=== PATIENT | female | born 1975 | race Caucasian/White ===

== ENCOUNTER 2018-12-07 10:39 | Emergency (ER) | payer OTHER ==
[2018-12-07] MEDS ORDERED: HYDROcodone/APAP 5-325MG 1 EACH TAB PO STA (11:05)
--- NOTE | 2018-12-07 11:25 | ED ---
General Adult HPI - General Chief complaint: Fall Stated complaint: FALL, SIM, HEAD INJURY, LEFT SHOULDER/ARM Time Seen by Provider: 12/07/18 10:49 Source: patient, RN notes reviewed Mode of arrival: ambulatory Limitations: no limitations - History of Present Illness Initial comments: 43-year-old female presents to the emergency department for a chief complaint of fall occurring about one hour prior to arrival. Patient states she was walking down her steps outside when she slipped and fell on her back. Patient states she did hit her head and may have had a momentary loss of consciousness. Patient admits to midline neck pain as well as left-sided neck pain and left shoulder pain. She has left upper back pain as well. She states this hurts worse when she takes a deep breath. Patient denies any abdominal pain. She denies any other injuries. Patient denies possibility of and has had a tubal ligation. Patient denies taking blood thinners. Patient has no other complaints at this time including shortness of breath, chest pain, abdominal pain, nausea or vomiting, headache, or visual changes. - Related Data Home Medications Medication Instructions Recorded Confirmed Ibuprofen [Motrin Ib] 600 mg PO Q8HR 12/07/18 12/07/18 Topiramate [Topamax] 50 mg PO BID 12/07/18 12/07/18 Allergies Allergy/AdvReac Type Severity Reaction Status Date / Time sumatriptan [From Imitrex] Allergy Anaphylaxis Verified 12/07/18 11:07 zolmitriptan [From Zomig] Allergy Anaphylaxis Verified 12/07/18 11:07 Review of Systems ROS Statement: Those systems with pertinent positive or pertinent negative responses have been documented in the HPI. ROS Other: All systems not noted in ROS Statement are negative. Past Medical History Past Medical History: Fibromyalgia Additional Past Medical History / Comment(s): migraines, scoliosis, DGD History of Any Multi-Drug Resistant Organisms: None Reported Past Surgical History: Appendectomy, Tubal Ligation Past Psychological History: No Psychological Hx Reported Smoking Status: Former smoker Past Alcohol Use History: None Reported Past Drug Use History: None Reported General Exam Limitations: no limitations General appearance: alert, in no apparent distress Head exam: Present: atraumatic, normocephalic, normal inspection Eye exam: Present: normal appearance, PERRL, EOMI. Absent: scleral icterus, conjunctival injection, periorbital swelling ENT exam: Present: normal exam, mucous membranes moist Neck exam: Present: tenderness (c-spine tenderness and left sided neck tenderness), other (patient in c-collar). Absent: meningismus, lymphadenopathy Respiratory exam: Present: normal lung sounds bilaterally. Absent: respiratory distress, wheezes, rales, rhonchi, stridor Cardiovascular Exam: Present: regular rate, normal rhythm, normal heart sounds. Absent: systolic murmur, diastolic murmur, rubs, gallop, clicks GI/Abdominal exam: Present: soft, normal bowel sounds. Absent: distended, tenderness, guarding, rebound, rigid Extremities exam: Present: tenderness (tenderness noted in the posterior left shoulder), normal capillary refill (cap refill < 2 seconds, radial pulse 2+ in RUE). Absent: full ROM (90 flexion and abduction of L shoulder) Back exam: Present: tenderness (tenderness noted to left lateral upper thoracic back. no midback or lower back tenderness). Absent: CVA tenderness (R), CVA tenderness (L), vertebral tenderness (no thoracic or lumbar spine tenderness. ) , other (no bruising noted) Neurological exam: Present: alert, oriented X3, CN II-XII intact Psychiatric exam: Present: normal affect, normal mood Course Vital Signs 12/07/18 12/07/18 12/07/18 10:42 13:16 16:37 Temperature 97.9 F 98.1 F 97.8 F Pulse Rate 77 63 63 Respiratory 18 15 16 Rate Blood Pressure 145/79 116/73 127/68 O2 Sat by Pulse 100 97 100 Oximetry - Reevaluation(s) Reevaluation #1: 12/07/18 sling applied by Tiki GUTIERREZ 12/07/18 17:03 Medical Decision Making - Medical Decision Making 43-year-old female presents to the emergency department for a chief about one hour prior to arrival. Patient states she was walking down steps when she slipped and fell on her back. She states it was icy. Patient complains of left sided neck pain and left shoulder pain as well as left thoracic lateral back pain. Patient was given Jeanerette for this pain. Chest x-ray with rib study shows no acute abnormality. Left shoulder x-ray shows a possible acromioclavicular joint separation without fracture or dislocation. Patient given sling and follow-up to orthopedics. Upon reevaluation patient's pain has worsened and she now has some abdominal tenderness just below the left side of the ribs. Therefore lab work and CT were ordered. Labs are unremarkable. CT chest abdomen pelvis with contrast showed an acute nondisplaced fracture of the anterior lateral margin of rib to on the left. There is also a 1 cm left renal lesion that needs further evaluation which patient was educated about will follow up with primary care for this there is also possible residual thymic tissue in the superior mediastinum that needs to be reevaluated. Patient also aware of this. Focal asymmetry of the right breast is noted which patient is aware of and will follow up for as well. There is no evidence of solid or hollow viscera traumatic injury in abdomen or pelvis. Patient given Tylenol 3 for the pain. Pain is somewhat better at this time. Patient will follow up with primary care and returning here if she has any worsening symptoms. - Lab Data Result diagrams: 12/07/18 14:31 12/07/18 14:31 Lab Results 12/07/18 12/07/18 12/07/18 Range/Units 11:20 11:20 14:31 WBC (3.8-10.6) k/uL RBC (3.80-5.40) m/uL Hgb (11.4-16.0) gm/dL Hct (34.0-46.0) % MCV (80.0-100.0) fL MCH (25.0-35.0) pg MCHC (31.0-37.0) g/dL RDW (11.5-15.5) % Plt Count (150-450) k/uL Neutrophils % % Lymphocytes % % Monocytes % % Eosinophils % % Basophils % % Neutrophils # (1.3-7.7) k/uL Lymphocytes # (1.0-4.8) k/uL Monocytes # (0-1.0) k/uL Eosinophils # (0-0.7) k/uL Basophils # (0-0.2) k/uL PT (9.0-12.0) sec INR (<1.2) APTT (22.0-30.0) sec Sodium (137-145) mmol/L Potassium (3.5-5.1) mmol/L Chloride (98-107) mmol/L Carbon Dioxide (22-30) mmol/L Anion Gap mmol/L BUN (7-17) mg/dL Creatinine (0.52-1.04) mg/dL Est GFR (CKD-EPI)AfAm (>60 ml/min/1.73 sqM) Est GFR (CKD-EPI)NonAf (>60 ml/min/1.73 sqM) Glucose (74-99) mg/dL Calcium (8.4-10.2) mg/dL Total Bilirubin (0.2-1.3) mg/dL AST (14-36) U/L ALT (9-52) U/L Alkaline Phosphatase (38-126) U/L Total Creatine Kinase 106 (30-135) U/L CK-MB (CK-2) 1.5 (0.0-2.4) ng/mL CK-MB (CK-2) Rel Index 1.4 Troponin I <0.012 (0.000-0.034) ng/mL Total Protein (6.3-8.2) g/dL Albumin (3.5-5.0) g/dL Urine Color Yellow Urine Appearance Cloudy H (Clear) Urine pH 6.5 (5.0-8.0) Ur Specific Mitchell 1.014 (1.001-1.035) Urine Protein Negative (Negative) Urine Glucose (UA) Negative (Negative) Urine Ketones Negative (Negative) Urine Blood Negative (Negative) Urine Nitrite Negative (Negative) Urine Bilirubin Negative (Negative) Urine Urobilinogen <2.0 (<2.0) mg/dL Ur Leukocyte Esterase Negative (Negative) Urine WBC 3 (0-5) /hpf Ur Squamous Epith Cells 9 H (0-4) /hpf Urine Mucus Rare H (None) /hpf Urine HCG, Qual Not Detected (Not Detectd) Blood Type Blood Type Confirm Blood Type Recheck Antibody Screen Spec Expiration Date 12/07/18 12/07/18 12/07/18 Range/Units 14:31 14:31 14:31 WBC 7.5 (3.8-10.6) k/uL RBC 4.56 (3.80-5.40) m/uL Hgb 12.6 (11.4-16.0) gm/dL Hct 38.3 (34.0-46.0) % MCV 84.1 (80.0-100.0) fL MCH 27.5 (25.0-35.0) pg MCHC 32.8 (31.0-37.0) g/dL RDW 14.8 (11.5-15.5) % Plt Count 350 (150-450) k/uL Neutrophils % 64 % Lymphocytes % 28 % Monocytes % 5 % Eosinophils % 1 % Basophils % 0 % Neutrophils # 4.8 (1.3-7.7) k/uL Lymphocytes # 2.1 (1.0-4.8) k/uL Monocytes # 0.4 (0-1.0) k/uL Eosinophils # 0.1 (0-0.7) k/uL Basophils # 0.0 (0-0.2) k/uL PT 10.3 (9.0-12.0) sec INR 1.0 (<1.2) APTT 22.3 (22.0-30.0) sec Sodium 141 (137-145) mmol/L Potassium 3.8 (3.5-5.1) mmol/L Chloride 110 H (98-107) mmol/L Carbon Dioxide 23 (22-30) mmol/L Anion Gap 8 mmol/L BUN 13 (7-17) mg/dL Creatinine 0.80 (0.52-1.04) mg/dL Est GFR (CKD-EPI)AfAm >90 (>60 ml/min/1.73 sqM) Est GFR (CKD-EPI)NonAf >90 (>60 ml/min/1.73 sqM) Glucose 91 (74-99) mg/dL Calcium 9.4 (8.4-10.2) mg/dL Total Bilirubin 0.3 (0.2-1.3) mg/dL AST 18 (14-36) U/L ALT 23 (9-52) U/L Alkaline Phosphatase 56 (38-126) U/L Total Creatine Kinase (30-135) U/L CK-MB (CK-2) (0.0-2.4) ng/mL CK-MB (CK-2) Rel Index Troponin I (0.000-0.034) ng/mL Total Protein 6.9 (6.3-8.2) g/dL Albumin 4.0 (3.5-5.0) g/dL Urine Color Urine Appearance (Clear) Urine pH (5.0-8.0) Ur Specific Mitchell (1.001-1.035) Urine Protein (Negative) Urine Glucose (UA) (Negative) Urine Ketones (Negative) Urine Blood (Negative) Urine Nitrite (Negative) Urine Bilirubin (Negative) Urine Urobilinogen (<2.0) mg/dL Ur Leukocyte Esterase (Negative) Urine WBC (0-5) /hpf Ur Squamous Epith Cells (0-4) /hpf Urine Mucus (None) /hpf Urine HCG, Qual (Not Detectd) Blood Type Blood Type Confirm Blood Type Recheck Antibody Screen Spec Expiration Date 12/07/18 12/07/18 Range/Units 14:31 14:36 WBC (3.8-10.6) k/uL RBC (3.80-5.40) m/uL Hgb (11.4-16.0) gm/dL Hct (34.0-46.0) % MCV (80.0-100.0) fL MCH (25.0-35.0) pg MCHC (31.0-37.0) g/dL RDW (11.5-15.5) % Plt Count (150-450) k/uL Neutrophils % % Lymphocytes % % Monocytes % % Eosinophils % % Basophils % % Neutrophils # (1.3-7.7) k/uL Lymphocytes # (1.0-4.8) k/uL Monocytes # (0-1.0) k/uL Eosinophils # (0-0.7) k/uL Basophils # (0-0.2) k/uL PT (9.0-12.0) sec INR (<1.2) APTT (22.0-30.0) sec Sodium (137-145) mmol/L Potassium (3.5-5.1) mmol/L Chloride (98-107) mmol/L Carbon Dioxide (22-30) mmol/L Anion Gap mmol/L BUN (7-17) mg/dL Creatinine (0.52-1.04) mg/dL Est GFR (CKD-EPI)AfAm (>60 ml/min/1.73 sqM) Est GFR (CKD-EPI)NonAf (>60 ml/min/1.73 sqM) Glucose (74-99) mg/dL Calcium (8.4-10.2) mg/dL Total Bilirubin (0.2-1.3) mg/dL AST (14-36) U/L ALT (9-52) U/L Alkaline Phosphatase (38-126) U/L Total Creatine Kinase (30-135) U/L CK-MB (CK-2) (0.0-2.4) ng/mL CK-MB (CK-2) Rel Index Troponin I (0.000-0.034) ng/mL Total Protein (6.3-8.2) g/dL Albumin (3.5-5.0) g/dL Urine Color Urine Appearance (Clear) Urine pH (5.0-8.0) Ur Specific Mitchell (1.001-1.035) Urine Protein (Negative) Urine Glucose (UA) (Negative) Urine Ketones (Negative) Urine Blood (Negative) Urine Nitrite (Negative) Urine Bilirubin (Negative) Urine Urobilinogen (<2.0) mg/dL Ur Leukocyte Esterase (Negative) Urine WBC (0-5) /hpf Ur Squamous Epith Cells (0-4) /hpf Urine Mucus (None) /hpf Urine HCG, Qual (Not Detectd) Blood Type A Positive Blood Type Confirm A Positive Blood Type Recheck CABO Indicated Antibody Screen NEGATIVE Spec Expiration Date 12/10/2018 - 233 Disposition Clinical Impression: Fall, Head injury, Rib fracture, Acromioclavicular joint separation Disposition: HOME SELF-CARE Condition: Good Instructions (If sedation given, give patient instructions): Head Injury (ED), Shoulder Pain (ED) Additional Instructions: Please take Motrin for pain. If pain is severe take Tylenol 3. Please follow- up with orthopedics in one to 2 days. Follow-up with Dr. Fernández in one to 2 days for abnormalities discussed on CAT scan such as breast asymmetry, chest abnormality, and possible renal lesion. Please return to the emergency department if you have any worsening symptoms. Is patient prescribed a controlled substance at d/c from ED?: No Referrals: Rosalia Fernández MD [Primary Care Provider] - 1-2 days Negro Gamboa DO [Doctor of Osteopathic Medicine] - 1-2 days Time of Disposition: 16:21
[2018-12-07 11:47] LABS: Appearance,Urine Cloudy (Clear); Bilirubin,Urine Negative (Negative); Blood,Urine Negative (Negative); Color,Urine Yellow; Glucose,Urine (UA) Negative (Negative); Ketones,Urine Negative (Negative); Leukocyte Esterase,Urine Negative (Negative); Mucus,Urine Rare /hpf; Nitrite,Urine Negative (Negative); PH, Urine 6.5 (5.0-8.0); Protein,Urine Negative (Negative); Specific Gravity,Urine 1.014 (1.001-1.035); Squamous Epithelial Cell,Urine 9 /hpf (0-4); Urobilinogen,Urine <2.0 mg/dL (<2.0); WBC,Urine 3 /hpf (0-5)
--- NOTE | 2018-12-07 12:32 | CT ---
EXAMINATION TYPE: CT brain brett vergara con DATE OF EXAM: 12/07/2018 COMPARISON: MRI brain 02/14/2012 HISTORY: Fall, LOC, altered mental status, trauma CT DLP: 1290.7 mGycm Automated exposure control for dose reduction was used. TECHNIQUE: CT scan of the head and cervical spine are performed without contrast. FINDINGS: There is no acute intracranial hemorrhage, mass effect, or midline shift identified. The ventricles and sulci are within normal limits in size. The globes are intact and the visualized sin uses are clear. Cervical spine is visualized in its entirety from C1 through upper thoracic levels and demonstrates s atisfactory alignment without evidence of acute fracture or dislocation. Prevertebral soft tissue ap pears within normal limits. The C1-C2 articulation is unremarkable. Mild degenerative disc changes a re present, there is spondylosis at C4-5, C5-6. IMPRESSION: 1. There is no acute fracture or dislocation evident in the cervical spine. 2. No acute intracranial hemorrhage, mass effect, or midline shift is seen.
[2018-12-07] MEDS ORDERED: MORPHINE SULFATE 4 MG/ML SYRINGE IM STA (12:47)
--- NOTE | 2018-12-07 13:22 | XR ---
Left shoulder HISTORY: Trauma and pain 3 views of the left shoulder Question some mild superior displacement of the distal clavicle in relation to the acromion. Bone min eralization is maintained. Left lung apex as visualized is normal. IMPRESSION: Possible acromioclavicular joint separation. No fracture or dislocation.
--- NOTE | 2018-12-07 13:27 | XR ---
Chest x-ray with left RIBS HISTORY: Trauma and pain View of the chest and 4 views of the left ribs submitted There is a spinal curvature present. No pneumothorax or pleural effusion. Cardiac mediastinal silhoue tte, pulmonary vascularity and senthil within normal limits. No evident displaced rib fracture. IMPRESSION: No acute abnormality. Bone scan may be of increased sensitivity.
[2018-12-07 14:48] LABS: Basophils % (A) 0 %; Eosinophils # (A) 0.1 k/uL (0-0.7); Eosinophils % (A) 1 %; HCT 38.3 % (34.0-46.0); HGB 12.6 gm/dL (11.4-16.0); Lymphocytes # (A) 2.1 k/uL (1.0-4.8); Lymphocytes % (A) 28 %; MCH 27.5 pg (25.0-35.0); MCHC 32.8 g/dL (31.0-37.0); MCV 84.1 fL (80.0-100.0); Mean Platelet Volume 6.4; Monocytes # (A) 0.4 k/uL (0-1.0); Monocytes % (A) 5 %; Neutrophils # (A) 4.8 k/uL (1.3-7.7); Neutrophils % (A) 64 %; Platelet Count 350 k/uL (150-450); RBC 4.56 m/uL (3.80-5.40); RDW 14.8 % (11.5-15.5); WBC 7.5 k/uL (3.8-10.6)
[2018-12-07 14:54] LABS: ALT 23 U/L (9-52); AST 18 U/L (14-36); Alkaline Phosphatase 56 U/L (38-126); Anion Gap 8 mmol/L; Blood Urea Nitrogen 13 mg/dL (7-17); Calcium 9.4 mg/dL (8.4-10.2); Carbon Dioxide 23 mmol/L (22-30); Chloride 110 mmol/L (98-107); Glucose 91 mg/dL (74-99); Potassium 3.8 mmol/L (3.5-5.1); Sodium 141 mmol/L (137-145); Total Bilirubin 0.3 mg/dL (0.2-1.3); Total Protein 6.9 g/dL (6.3-8.2)
[2018-12-07 14:56] LABS: Partial Thromboplastin Time 22.3 sec (22.0-30.0); Prothrombin Time 10.3 sec (9.0-12.0)
[2018-12-07 15:06] LABS: Creatine Kinase 106 U/L (30-135)
[2018-12-07 15:19] LABS: Creatine Kinase MB 1.5 ng/mL (0.0-2.4); Troponin I <0.012 ng/mL (0.000-0.034)
--- NOTE | 2018-12-07 15:45 | CT ---
EXAMINATION TYPE: CT ChestAbdPelvis w con DATE OF EXAM: 12/07/2018 COMPARISON: NONE HISTORY: Thoracic and abdominal pain post fall. CT DLP: 1016.9 mGycm. Automated Exposure Control for Dose Reduction was Utilized. CONTRAST: CT scan of the thorax, abdomen and pelvis is performed with IV Contrast, patient injected with 100 mL of Isovue 300. FINDINGS: LUNGS: The lungs are grossly clear, there is no concerning parenchymal mass or nodule identified. T here is no pleural effusion or pneumothorax seen. The tracheobronchial tree is patent. MEDIASTINUM: There are no greater than 1 cm hilar or mediastinal lymph nodes. No pericardial effusi on is seen. Rounded density within the superior anterior mediastinum contains internal foci of fat a nd elongates and a triangular appearance on image 23 likely related to residual thymic tissue. Less l ikely thymoma or thymic hyperplasia are possibilities. Surveillance is recommended. If there is clini christiano suspicion MRI chest could be performed with in and out of phase imaging to evaluate for thymic hy perplasia. OTHER: 1.6 cm asymmetry is seen of the upper outer quadrant of the right breast for which mammography is recommended. LIVER/GB: Hepatic parenchyma is diffusely hypoattenuated in comparison to that of the spleen, most co mmonly seen in hepatic steatosis. This finding limits evaluation for hepatic masses. No gross evidenc e of hepatic mass is seen. No intrahepatic biliary ductal dilatation. There is more focal fatty infil tration and a geographic distribution along the fissure for the falciform ligament. No cholelithiasis is seen. No perihepatic fluid collection. PANCREAS: No significant abnormality is seen. SPLEEN: No significant abnormality is seen. No perisplenic fluid collection. ADRENALS: No significant abnormality is seen. KIDNEYS: 8mm right upper pole cortical renal cyst and second upper pole lesion that is too small to a ccurately characterize are seen in addition to a left renal lesion that does not fit criteria for a b enign cyst measuring 1 cm in the mid pole for which ultrasound is recommended for further evaluation. BOWEL: No significant abnormality is seen. Surgical clips within the right lower quadrant are likely from prior appendectomy. GENITAL ORGANS: Uterus is heterogenous in likely relates to the phase of menses. Tubal ligation clips are noted within the pelvis. LYMPH NODES: No greater than 1cm abdominal or pelvic lymph nodes are appreciated. OSSEOUS STRUCTURES: There is a nondisplaced fracture of the anterior lateral margin of the left rib 2 on image 20 with only subtle cortical buckling. Left-sided pars interarticularis defects are seen at L4 and L5. No anterolisthesis. IMPRESSION: 1. Acute nondisplaced fracture of the anterolateral margin of rib 2 on the left seen only a subtle co rtical buckling. 2. 1 cm left renal lesion does not fit criteria for simple cyst and could represent a cyst with pseud oenhancement versus solid mass. Therefore renal ultrasound is recommended to evaluate for increased t hrough transmission of a cyst. 3. Probable residual thymic tissue in the superior mediastinum although thymoma or thymic hyperplasia or less likely and short-term follow-up is recommended. If there is further clinical concern MRI wit h in and out of phase imaging could evaluate for thymic hyperplasia. 4. Incidentally noted right breast focal asymmetry of the upper outer quadrant for which diagnostic m ammogram is recommended. 5. No evidence of solid or hollow viscera traumatic injury in the abdomen or pelvis.
[2018-12-07] MEDS ORDERED: ACET/COD 300 MG/30 MG STARTER PACK 6 TAB BTL PO STA (16:22)
[2018-12-07] MEDS ORDERED: KETOROLAC 30 MG/ML 1 ML VIAL IVP STA (16:22)
[2018-12-07 16:38] VITALS: RESP 16
[2018-12-07 17:27] VITALS: BP 133/72; PULSE 72; TEMP 97.9
== END 2018-12-07 17:31 | disposition home or self-care (01) ==
LOC: EC 10:39
DX: S43.102A Unspecified dislocation of left acromioclavicular joint, initial encounter (principal); S22.32XA Fracture of one rib, left side, initial encounter for closed fracture; S09.90XA Unspecified injury of head, initial encounter; N28.89 Other specified disorders of kidney and ureter; M54.2 Cervicalgia; M54.6 Pain in thoracic spine; Z87.891 Personal history of nicotine dependence; Z88.8 Allergy status to other drugs, medicaments and biological substances; Z79.1 Long term (current) use of non-steroidal anti-inflammatories (NSAID); Z79.899 Other long term (current) drug therapy; Z86.69 Personal history of other diseases of the nervous system and sense organs; Z87.39 Personal history of other diseases of the musculoskeletal system and connective tissue; Z98.51 Tubal ligation status; W00.1XXA Fall from stairs and steps due to ice and snow, initial encounter; Y93.01 Activity, walking, marching and hiking; Y92.008 Other place in unspecified non-institutional (private) residence as the place of occurrence of the external cause
CPT/HCPCS: 99284; 96374; 96372; 36415; 86900; 86901; 80053; 82550; 82553; 84484; 85025; 85610; 85730; 86850; 81001; 81025; 71101; 73030; 72125; 70450; 71260; 74177; J2270; J1885; Q9967

== ENCOUNTER 2019-03-25 12:23 | Emergency (ER) | payer OTHER ==
[2019-03-25 12:30] VITALS: BP 137/72; PULSE 74; RESP 18; TEMP 97.5
--- NOTE | 2019-03-25 12:49 | ED ---
Lower Extremity Injury HPI - General Chief Complaint: Extremity Injury, Lower Stated Complaint: Lt ankle injury Time Seen by Provider: 03/25/19 12:32 Source: patient, RN notes reviewed Mode of arrival: wheelchair Limitations: no limitations - History of Present Illness Initial Comments: 43-year-old female presents emergency Department with chief complaint of left ankle injury. Patient states that she missed her running board on her truck and states that she rolled her ankle. Patient has lateral ankle pain. Denies any foot pain proximal to the left ankle patient states that she's had an Achilles injury in the past but no fractures. - Related Data Home Medications Medication Instructions Recorded Confirmed Ibuprofen [Motrin Ib] 600 mg PO Q8HR 12/07/18 12/07/18 Topiramate [Topamax] 50 mg PO BID 12/07/18 12/07/18 Previous Rx's Medication Instructions Recorded Ibuprofen [Motrin] 600 mg PO Q8HR PRN #30 tab 03/25/19 Allergies Allergy/AdvReac Type Severity Reaction Status Date / Time sumatriptan [From Imitrex] Allergy Anaphylaxis Verified 03/25/19 12:30 zolmitriptan [From Zomig] Allergy Anaphylaxis Verified 03/25/19 12:30 Review of Systems ROS Statement: Those systems with pertinent positive or pertinent negative responses have been documented in the HPI. ROS Other: All systems not noted in ROS Statement are negative. Past Medical History Past Medical History: Fibromyalgia Additional Past Medical History / Comment(s): migraines, scoliosis, DGD History of Any Multi-Drug Resistant Organisms: None Reported Past Surgical History: Appendectomy, Tubal Ligation Past Psychological History: No Psychological Hx Reported Smoking Status: Never smoker Past Alcohol Use History: None Reported Past Drug Use History: None Reported General Exam Limitations: no limitations General appearance: alert, in no apparent distress Head exam: Present: atraumatic, normocephalic, normal inspection Neck exam: Present: normal inspection. Absent: tenderness, meningismus, lymphadenopathy Respiratory exam: Present: normal lung sounds bilaterally. Absent: respiratory distress, wheezes, rales, rhonchi, stridor Cardiovascular Exam: Present: regular rate, normal rhythm, normal heart sounds. Absent: systolic murmur, diastolic murmur, rubs, gallop, clicks Extremities exam: Present: other (Left ankle there is tenderness to lateral malleolus, pain with range of motion normal Sapp's test, no Achilles tenderness no foot tenderness no proximal tib-fib tenderness) Course Vital Signs 03/25/19 12:27 Temperature 97.5 F L Pulse Rate 74 Respiratory 18 Rate Blood Pressure 137/72 O2 Sat by Pulse 98 Oximetry Medical Decision Making - Medical Decision Making 43-year-old female presented for left ankle injury. X-rays were obtained no acute fracture. Patient has a left ankle sprain. Patient placed in a stirrup Aircast and will follow-up with orthopedics as needed. Disposition Clinical Impression: Ankle sprain Disposition: HOME SELF-CARE Condition: Stable Instructions (If sedation given, give patient instructions): Ankle Sprain (ED) Additional Instructions: Please return to the Emergency Department if symptoms worsen or any other concerns. Prescriptions: Ibuprofen [Motrin] 600 mg PO Q8HR PRN #30 tab PRN Reason: Pain Is patient prescribed a controlled substance at d/c from ED?: No Referrals: Rosalia Fernández MD [Primary Care Provider] - 1-2 days Corbin Chatterjee MD [Medical Doctor] - 1-2 days Time of Disposition: 13:10
--- NOTE | 2019-03-25 13:08 | XR ---
EXAMINATION TYPE: XR ankle complete LT , 3 VIEWS DATE OF EXAM ORDERED: 03/25/2019 HISTORY: Pain. COMPARISON: None. FINDINGS: No fracture, dislocation or ankle joint effusion is seen. IMPRESSION: NO ACUTE OSSEOUS LESION.
== END 2019-03-25 13:23 | disposition home or self-care (01) ==
LOC: EC 12:23
DX: S93.402A Sprain of unspecified ligament of left ankle, initial encounter (principal); Z88.8 Allergy status to other drugs, medicaments and biological substances; Z79.1 Long term (current) use of non-steroidal anti-inflammatories (NSAID); Z79.899 Other long term (current) drug therapy; Z86.69 Personal history of other diseases of the nervous system and sense organs; Z87.39 Personal history of other diseases of the musculoskeletal system and connective tissue; X50.9XXA Other and unspecified overexertion or strenuous movements or postures, initial encounter; Y93.89 Activity, other specified; Y92.009 Unspecified place in unspecified non-institutional (private) residence as the place of occurrence of the external cause
CPT/HCPCS: 99283; 29515; 73610; L4350

== ENCOUNTER → 2021-09-08 | Outpatient (CLI) | payer OTHER ==
--- NOTE | 2021-09-08 22:00 | MR ---
EXAMINATION TYPE: MR shoulder LT wo con DATE OF EXAM: 09/08/2021 COMPARISON: Plain film 08/18/2021 HISTORY: Left shoulder pain with limited movement for 4 months. TECHNIQUE: Multiplanar, multisequence imaging of the left shoulder is performed without contrast. FINDINGS: There is artifact, motion on exam. Rotator Cuff: There is no johan rotator cuff tear, some abnormal increased signal is associated withi n the tendon, appears somewhat attenuated, the posterior aspect of the insertion of the rotator cuff some increased signal is present, sagittal image #4, coronal image #14, difficult to exclude a partia l tear Acromioclavicular Joint: Distal acromion is downturned. The questionable superior displacement of the distal clavicle in relation to the acromion on the plain film shows some mild increased signal in T2 -weighted sequences at the level of the joint, there may be grade 1 to grade 2 AC separation, fluid i s present in the subacromial subdeltoid bursa, there is a small distal acromial spur Glenohumeral Joint: Intact Labrum: The labrum appears grossly intact given limitation of non-arthrogram study. Biceps Tendon: The long head of biceps is in normal location within bicipital groove, there is some f luid present along this tendon. Bone marrow signal: No focal abnormal marrow signal is appreciated. Other: There is a small joint effusion. IMPRESSION: Artifact may limit sensitivity. There may be some tendinosis of the rotator cuff, small partial tear, correlate for impingement, correlate for AC separation grade 1-2
== END | disposition home or self-care (01) ==
LOC: RADMRIMAIN 11:36
PROVIDERS: ATTEND Orthopaedic Surgery
DX: M25.512 Pain in left shoulder (principal)

== ENCOUNTER → 2021-10-30 | Outpatient (CLI) | payer OTHER ==
[2021-10-30 14:55] LABS: Basophils % (A) 0 %; Eosinophils # (A) 0.3 k/uL (0-0.7); Eosinophils % (A) 5 %; HCT 42.9 % (34.0-46.0); HGB 13.3 gm/dL (11.4-16.0); Hypochromasia Slight; Lymphocytes # (A) 1.8 k/uL (1.0-4.8); Lymphocytes % (A) 31 %; MCH 27.2 pg (25.0-35.0); MCHC 31.1 g/dL (31.0-37.0); MCV 87.3 fL (80.0-100.0); Mean Platelet Volume 7.1; Monocytes # (A) 0.4 k/uL (0-1.0); Monocytes % (A) 6 %; Neutrophils # (A) 3.1 k/uL (1.3-7.7); Neutrophils % (A) 55 %; Platelet Count 309 k/uL (150-450); RBC 4.91 m/uL (3.80-5.40); RDW 15.1 % (11.5-15.5); WBC 5.7 k/uL (3.8-10.6)
[2021-10-30 15:05] LABS: Potassium 4.3 mmol/L (3.5-5.1)
== END | disposition home or self-care (01) ==
LOC: LABPAT 13:56
PROVIDERS: ATTEND Orthopaedic Surgery
DX: Z01.812 Encounter for preprocedural laboratory examination (principal); M45.7 Ankylosing spondylitis of lumbosacral region
CPT/HCPCS: 36415; 80051; 85025; 93005

== ENCOUNTER 2021-11-12 05:32 | Day surgery (SDC) | payer OTHER ==
--- NOTE | 2021-11-11 15:13 | HP ---
HISTORY AND PHYSICAL DATE OF SURGERY: 11/12/2021 Monie Hager is a 45-year-old patient seen with progressive left shoulder pain. Options for treatment were discussed. She elected to proceed with left shoulder arthroscopy. Consent was obtained. PAST MEDICAL HISTORY: Fibromyalgia. PAST SURGICAL HISTORY: Tubal ligation, appendectomy. DAILY MEDICATIONS: Zomig, Imitrex. ALLERGIES: NONE. SOCIAL HISTORY: She denies current tobacco use. PHYSICAL EVALUATION OF THE LEFT SHOULDER: Flexion is 70 degrees. Abduction is 30 degrees. External rotation is 30 degrees with weakness and pain. Tenderness along the anterolateral acromion and rotator cuff insertion. Impingement is positive at 80. Drop-arm sign positive. Cross adduction sign positive. Distal neurovascular exam intact. Left shoulder radiographs revealed a type 2 acromion along with acromioclavicular joint osteoarthritis. MRI left shoulder revealed a partial rotator cuff tear, impingement and acromioclavicular joint osteoarthritis. IMPRESSION: 1. Left shoulder impingement with partial rotator cuff tear. 2. Left shoulder acromioclavicular joint osteoarthritis. PLAN: Left shoulder arthroscopy, subacromial decompression, possible arthroscopic rotator cuff repair, Sindy procedure and debridement. MMODL / IJN: [id number] /
[2021-11-12] MEDS ORDERED: LACTATED RINGERS 1,000 ML IV SCH (05:51)
[2021-11-12] MEDS ORDERED: DEXAMETHASONE SOD PHOSPHATE 4 MG/ML 1 ML VIAL IV ONE (05:51)
[2021-11-12] MEDS ORDERED: ONDANSETRON 4 MG/2 ML VIAL IVP ONE (05:51)
[2021-11-12] MEDS ORDERED: LIDOCAINE 1% (10MG/ML) FOR IV START INTRADERMA PRN (05:51)
[2021-11-12 06:12] VITALS: TEMP 97.6
[2021-11-12] MEDS ORDERED: HYDROmorphone 0.5 MG/0.5 ML SYRINGE IVP PRN (07:00)
[2021-11-12] MEDS ORDERED: METOCLOPRAMIDE 5 MG/ML 2 ML VIAL IVP PRN (07:00)
[2021-11-12] MEDS ORDERED: MIDAZOLAM 2 MG/2 ML VIAL IVP ONE (07:01)
[2021-11-12] MEDS ORDERED: GLYCOPYRROLATE 0.2 MG/ML 2 ML VIAL ONE (07:20)
[2021-11-12] MEDS ORDERED: MIDAZOLAM 2 MG/2 ML VIAL ONE (07:20)
[2021-11-12] MEDS ORDERED: ROCURONIUM 10 MG/ML (5 ML VIAL) IV ONE (07:20)
[2021-11-12] MEDS ORDERED: SUCCINYLCHOLINE CHLORIDE 100 MG/5 ML SYR IV ONE (07:20)
[2021-11-12] MEDS ORDERED: fentaNYL (PF) 50 MCG/ML 2 ML AMP ONE (07:20)
[2021-11-12] MEDS ORDERED: PROPOFOL 10 MG/ML 20 ML VIAL IV ONE (07:20)
[2021-11-12] MEDS ORDERED: NEOSTIGMINE 1 MG/ML 10 ML VIAL ONE (07:20)
[2021-11-12] MEDS ORDERED: DEXAMETHASONE SOD PHOSPHATE 4 MG/ML 1 ML VIAL ONE (07:20)
[2021-11-12] MEDS ORDERED: ROPIVACAINE 5 MG/ML 30 ML VIAL ONE (07:20)
[2021-11-12] MEDS ORDERED: LABETALOL 5 MG/ML VIAL MDV ONE (07:20)
--- NOTE | 2021-11-12 08:55 | P.OP ---
Date of Procedure: 11/12/21 Preoperative Diagnosis: Left shoulder impingement Postoperative Diagnosis: 1. Left shoulder rotator cuff tear 2. Left shoulder impingement Procedure(s) Performed: 1. Left shoulder arthroscopic rotator cuff repair 2. Left shoulder arthroscopic subacromial decompression Implants: 14.75 Arthrex swivel lock anchor Anesthesia: GETA, regional (Interscalene block) Surgeon: Negro Gamboa Pediatric Licensed Practical Nurse #1: Sanjay Lewis Estimated Blood Loss (ml): 7 Pathology: none sent Condition: stable Disposition: PACU Indications for Procedure: 45-year-old patient seen with progressive left shoulder pain. After having treatment options discussed, she elected to proceed with arthroscopy. Operative Findings: see description of procedure Description of Procedure: Patient underwent an interscalene block by department of anesthesia. The patient was then taken to the operative suite. The patient underwent a general anesthetic by the department of anesthesia. The patient was placed into a lateral position and secured. There was appropriate padding of the bony prominence. Left shoulder was then prepped and draped in normal sterile orthopedic fashion. We placed the extremity in 10 pounds of longitudinal traction. A posterior incision was now made for a posterior working portal site. The trocar and cannula were inserted into the glenohumeral joint. Arthroscopy was initiated. Spinal needle was now inserted anteriorly, to ascertain the anterior working portal site. An incision was now made in that area, a trocar was inserted followed by a probe. The labrum was probed and found to be stable. There were some grade 1 chondromalacia changes involving the humeral head with no osteochondral tears. The biceps was stable. At this point instruments were removed from the glenohumeral joint. Utilizing the posterior working portal site, the trocar and cannula were inserted into the subacromial space. Arthroscopy initiated. I made an incision 2 fingerbreadths lateral to the acromion. I introduced my trocar followed by my ArthroCare ablator. I now began ablating thick subacromial bursal tissue, which exposed the undersurface of the anterior acromion. There was diminished subacromial space. There was a very prominent anterior acromion. A motorized bur was introduced and a subacromial decompression was performed. I also excised some osteophytes off the inferior aspect of the distal clavicle. The AC joint was visualized and noted to be fairly moderately arthritic. I did not think enough to warrant a Sindy procedure. I turned my attention to the rotator cuff. There was significant partial tearing along the distal aspect supraspinatus along its posterior insertion area. Upon probing the area and noted a full-thickness perforation present. I debrided the margins getting down to stable tendon tissue. I abraded the footprint with a motorized bur. With the assistance of Sanjay FITCH I passed 3 everted mattress sutures through good bites of rotator cuff tendon. I now punched a hole in the footprint for insertion of an anchor. All 6 limbs of suture were passed through the eyelet of a 4.75 Arthrex swivel lock anchor. I placed anchor into the pre-punched hole. I held it in position while Sanjay FITCH tensioned all suture limbs and deployed the anchor with good fixation noted. All residual suture limbs were now clipped. We had good compression of the tendon along the entire footprint. Instruments now removed from the portal sites. All portal sites were approximated with nylon suture. Sterile dressings were applied followed by a shoulder sling. Sanjay FITCH assisted in this complex case. The patient was awakened, transferred to a bed, and taken to recovery in stable condition.
[2021-11-12 10:37] VITALS: BP 117/70; PULSE 68; RESP 15
--- NOTE | 2021-11-12 20:27 | P.ANPRN ---
Procedure Note - Anesthesia - Nerve Block Performed Left Interscalene Single Time Out Performed: Yes Date of Procedure: 11/12/21 Procedure Start Time: 07:00 Procedure Stop Time: 07:05 Location of Patient: PreOp Indication: Acute Post-Operative Pain, Requested by Surgeon Sedation Type: Sedate with meaningful contact maintained Preparation: Sterile Prep Position: Supine Needle Types: Pajunk Needle Gauge: 21 Ultrasound used to visualize needle placement: Yes Ultrasound used to observe medication spread: Yes Blood Aspirated: No Pain Paresthesia on Injection Noted: No Resistance on Injection: Normal Image Stored and Saved: Yes Events: Uneventful and Well Tolerated (ropi .5% 20cc)
== END 2021-11-12 10:51 | disposition home or self-care (01) ==
LOC: OR 05:32
PROVIDERS: ATTEND Orthopaedic Surgery
DX: M75.42 Impingement syndrome of left shoulder (principal); M75.102 Unspecified rotator cuff tear or rupture of left shoulder, not specified as traumatic; M25.812 Other specified joint disorders, left shoulder; M19.012 Primary osteoarthritis, left shoulder; M79.7 Fibromyalgia; Z79.899 Other long term (current) drug therapy; Z97.2 Presence of dental prosthetic device (complete) (partial); Z98.51 Tubal ligation status; Z90.49 Acquired absence of other specified parts of digestive tract; G43.909 Migraine, unspecified, not intractable, without status migrainosus; Z79.1 Long term (current) use of non-steroidal anti-inflammatories (NSAID); Z79.891 Long term (current) use of opiate analgesic; Z88.8 Allergy status to other drugs, medicaments and biological substances
CPT/HCPCS: 64415; 76942; 29826; 29827; C1713; J2250; J1100; J2710; J0690; J2405; J3010; J2795; J0330; J2704